=== PATIENT | female | born 1935 | race Caucasian/White ===

== ENCOUNTER 2016-09-11 10:25 | Outpatient (CLI) | payer MEDICARE, OTHER ==
[~2016-09-11] VITALS: Ht 160 cm; Wt 70.5 kg
--- NOTE | ~2016-09-11 | HEMODYNAMI ---
PATIENT:SANGEETA NIETO MEDICAL RECORD: [id number] : 39 LOCATION:[facility] ADMISSION DATE: 09/11/16 Generatedon:09/11/201613:34 Patient name: SANGEETA NIETO Patient #: [id number] SSN: [id number] : 1935 Date of study: 09/11/2016 Page: Of Hemodynamic Procedure Report Patient Data Patient Demographics Procedure consent was obtained First Name: SANGEETA Gender: Female Last Name: EMILIA : 1935 Middle Initial: WOLF Age: 81 year(s) Patient #: [id number] Race: Unknown SSN: [id number] Additional ID: [id number] Contact details Address: [address] [place] [address] State: [place] City: [place] Zip code: [address] Past Medical History Allergies Allergen Reaction Date Comments Reported Other allergy 06/30/2016 Sammy Inhibitors, Codiene, Edarbi, Lovastatin, Pepcid, Pravastatin, Prednisone, Prilosec, Symbicort Other allergy 07/09/2016 CODEINE, PEPCID, PREDNISONE, ALBUTEROL Admission Admission Data Admission Date: 09/11/2016 Admission Time: 10:25 Lab Results Lab Result Date: 09/11/2016 Lab Result Time: 0:00 Biochemistry Name Units Result Min Max BUN mg/dl 17 --(---*)-- 7 18 Creatinine mg/dl 0.9 --(-*--)-- 0.6 1.3 CBC Name Units Result Min Max Hemoglobin g/dl 9.8 *-(----)-- 13.5 17.5 Procedure Procedure Types Cath Procedure Diagnostic Procedure Cardioversion Procedure Description Procedure Date Procedure Date: 09/11/2016 Procedure Start Time: 13:22 Procedure End Time: 13:32 Procedure Staff Name Function Rogelio Zapata MD Performing Physician Nikita Martinez RT Scrub Franco Farrell RT Supply Service Worker Nita Del Rio RT Monitor Afua Rueter RN Nurse Procedure Data Cath Procedure Estimated blood loss: 0 ml Procedure Complications No complications Procedure Medications Medication Administration Route Dosage Oxygen NC 2 l/min Refer to Anesthesia Notes for Sedation Medications Hemodynamics Rest HGB: 9.8 (g/dl) Heart Rate: 77 (bpm) Snapshots Pre Cath Intra NCS Post Cath Vital Signs Time Heart Resp SPO2 NIBP (mmHg) Rhythm Pain Sedation Rate (ipm) (%) Status Level (bpm) 13:12:58 80 19 98 159/99(135) A-Fib 0 (11) 10(A) , No pain 13:17:16 77 22 99 134/94(108) A-Fib 0 (11) 10(A) , No pain 13:21:26 78 18 99 151/92(133) A-Fib 0 (11) 10(A) , No pain 13:25:36 83 16 98 136/77(108) A-Fib 0 (11) 6(A) , No pain 13:29:56 69 17 98 125/62(102) A-Fib 0 (11) 6(A) , No pain 13:31:38 70 19 100 133/75(107) NSR 0 (11) 10(A) , No pain Medications Time Medication Route Dose Verified Delivered Reason Notes Effectiven ess by by 13:12:19 Oxygen NC 2 Rogelio Caal Per l/min Jodi Lindquist RN physician 13:12:25 Refer to Rogelio Mercado Per Anesthesia Jodi Zapata MD physician Notes for Sedation Medications Procedure Log Time Note 12:40:12 Franco Farrell RT(R) sent for patient. Start room use. 12:53:14 Zero performed for pressure channel P1 12:54:03 ACC Patient presents with Stable Angina CCS Anginal Class 1--Ordinary physical activity does not cause angina, angina occurs with strenuos, rapid, or prolonged activity.. 12:54:07 ACC Patient presents with Non-STEMI CCS Anginal Class 0--No symptoms, no angina. 12:54:10 Diagnostic Cath status Elective 12:54:27 Time tracking: Regular hours 12:54:32 Plan of Care:Hemodynamics will remain stable., Cardiac rhythm will remain stable., Comfort level will be maintained., Respiratory function will remain adequate., Patient/ family verbilizes understanding of procedure., Procedure tolerated without complication., Recovers from procedure without complications.. 13:07:04 Patient received from Outpatients to CCL 1 Alert and oriented. Tansferred to table in Supine position. 13:07:05 Warm blankets applied, and nelly hugger turned on for patient comfort. 13:07:05 Correct patient and procedure confirmed by team. 13:07:07 Signed procedure consent form obtained from patient. 13:07:08 ECG and BP/O2 sat monitors applied to patient. 13:11:45 Vital chart was started 13:12:19 Oxygen 2 l/min NC was given by Afua Lindquist RN; Per physician; 13:12:25 Refer to Anesthesia Notes for Sedation Medications was given by Rogelio Zapata MD; Per physician; 13:14:53 Baseline sample Acquired. 13:15:07 Full Disclosure recording started 13:15:22 H&P Date Dictated: 09/08/2016 Within 30 days and on chart., H&P Addendum completed by physician on day of procedure. (MUST COMPLETE FOR ALL OUTPATIENTS). 13:15:31 Rhythm: atrial fibrillation 13:15:34 Pre-procedure instructions explained to patient. 13:15:36 Family in waiting room. 13:15:41 Patient NPO since Midnight. 13:15:54 Is patient on blood thinner?Yes 13:16:01 ACC The patient was administered the following blood thiners within the last 24 hours: ACCPradaxa 13:16:05 Patient diabetic? No. 13:16:08 Snore? Yes 13:16:10 Sleep apnea? No 13:16:11 Deviated septum? No 13:16:12 Opens mouth fully? Yes 13:16:13 Sticks out tongue? Yes 13:16:20 Dentures? No ? 13:16:36 IV patent on arrival in right forearm with 0.9% NaCl at [facility]. 13:17:37 Lab Result : BUN 17 mg/dl 13:17:37 Lab Result : Hemoglobin 9.8 g/dl 13:17:37 Lab Result : Creatinine 0.9 mg/dl 13:17:44 Lab results completed and on chart. 13:17:46 Alarms reviewed by Javier Pagan 13:17:54 Physician paged 13:18:24 Quick combo pads placed on patients chest and back. 13:18:35 Quick Combo opened to sterile field. 13:19:13 Jo present and monitoring patient for TIVA. 13:22:26 Procedure started. 13:27:32 Defibrillator synced and charged to 200 Joules. 13:27:54 Shock delivered. 13:29:48 Unsuccessful cardioversion. 13:29:55 Defibrillator synced and charged to 300 Joules. 13:30:25 Shock delivered. 13:30:29 Patient cardioverted to sinus rhythm . 13:30:42 Procedure ended.(Physican Out) 13:31:14 Post-procedure physical assessment completed. ASA score P 2 - A patient with mild systemic disease as per Rogelio Zapata MD. 13:31:19 Post procedure rhythm: sinus rhythm 13:31:24 Estimated blood loss: 0 ml 13:31:26 Post procedure instruction explained to patient.Patient verbalizes understanding. 13:31:40 Procedure and supply charges have been captured, reviewed, submitted and are correct. 13:32:00 Procedure Complication : No complications 13:32:19 Vital chart was stopped 13:32:29 See physician's report for complete and final results. 13:32:37 Report given to Outpatients. 13:32:43 Patient transfered to Outpatients with Stretcher. 13:32:47 Procedure ended. 13:32:47 Full Disclosure recording stopped 13:32:55 End room use (Document Last) Device Usage Item Manufacture Quantity Catalog Hospital Part Current Minimal Lot# / Name Number Charge Number Stock Stock Laurent al# Code Positron 1 [id number] Combo Signature Audit [place] Stage Time Signature Unsigned Intra-Procedure 09/11/2016 Nita Del Rio 1:34:34 PM RT(R) Signatures Monitor : Nita Del Rio Signature : RT Date : Time : [facility] [address] [place] [address]
[~2016-09-11 10:25] MED LIST: ATACAND8 MG PO; BAYER CHEWABLE81 MG PO; CARDIZEM120 MG PO; CARDIZEM30 MG PO; CLARITIN 10 MG10 MG PO; DEXILANT30 MG PO; DEXILANT60 MG PO; EZFE 200200 MG; K-DUR20 MEQ PO; KLOR-CON 1010 MEQ PO; LASIX20 MG PO; LUMIGAN 0.01%2.5 ML EACH EYE; MACRODANTIN100 MG PO; MULTAQ400 MG PO; NORVASC2.5 MG; PLAVIX75 MG PO; PRADAXA150 MG PO; PREMARIN0.3 MG; RESTASIS EYE DR30 EA EACH EYE; SINGULAIR10 MG PO; VITAMIN B-1250 MCG; XALATAN 0.0052.5 ML LEFT EYE
[2016-09-11] MEDS ORDERED: MELATONIN 3 MG1 TAB PO (11:45)
[2016-09-11] MEDS ORDERED: MULTAQ400 MG PO (11:45)
[2016-09-11] MEDS ORDERED: MUCINEX600 MG PO (11:46)
[2016-09-11] MEDS ORDERED: TRUSOPT 2 % OPT10 ML (11:46)
[2016-09-11] MEDS ORDERED: FLUTICASONE PRO16 GM NASAL (11:47)
[2016-09-11 11:51] LABS: BASOPHILS 2.6 % (0.0-2.0); EOSINOPHILS 3.9 % (0-7); HEMATOCRIT 31.7 % (36.0-48.0); HEMOGLOBIN 9.8 g/dL (12-16); IMMATURE GRANULOCYTES 0.2 % (0-5); LYMPHOCYTES 22.8 % (15-50); MCH 25.5 pg (26.0-34.0); MCHC 30.9 g/dL (31.0-37.0); MCV 82.3 fL (80.0-100.0); MEAN PLATELET VOLUME 9.8 fL (7.4-10.4); MONOCYTES 10.4 % (2-11); NEUTROPHILS 60.1 % (40-80); PLATELET COUNT 302 10x3/uL (130-400); RBC 3.85 10x6/uL (4.00-5.40); RDW 16.1 % (11.5-14.5); WBC 4.6 10x3/uL (4.8-10.8)
[2016-09-11 11:56] VITALS: BP 140/75; Ht 160 cm; Wt 70.5 kg
[2016-09-11 12:00] LABS: INR 1.85 (0.85-1.17); PROTIME 21.3 SECONDS (11.6-15.0)
[2016-09-11 12:07] LABS: ANION GAP 13.8 mmol/L (8-16); CALCIUM 9.4 mg/dL (8.5-10.1); CARBON DIOXIDE 26.9 mmol/L (21.0-32.0); CREATININE - SERUM 0.9 mg/dL (0.6-1.3); POTASSIUM - SERUM 3.7 mmol/L (3.5-5.1)
--- NOTE | 2016-09-11 14:03 | NUR ---
VSS AT HR 80 SR. BP 126/72 CHEST PAIN DENIED ALERT AND ORIENTED WITH HOB UP 30 DEGREES. WILL MONITOR
--- NOTE | 2016-09-11 15:30 | NUR ---
PIV REMOVED FROM LEFT ARM WITH DRESSING APPLIED. CHEST PAIN IS DENIED WITH NSR RATE 80 DISCHARGE INSTRUCTIONS GONE OVER WITH PATIENT AND . LEFT VIA WC TO [facility] FOR TO DRIVE HOME
--- NOTE | 2016-09-18 16:40 | OP ---
PATIENT NAME: SANGEETA NIETO MEDICAL RECORD: [id number] :39 LOCATION:[facility] ADMISSION DATE: SURGEON: GARCIA FRANKS MD DATE OF OPERATION: 09/11/2016 PROCEDURE: DC cardioversion. INDICATION: Atrial fibrillation. PROCEDURE IN DETAIL: IV conscious sedation was performed per anesthesia. Continuous heart rate, O2 saturation, blood pressure monitoring were all undertaken, all of which remained stable. She received 2 shocks at 200 and 300 joules restoring sinus rhythm. OVERALL IMPRESSION: Successful DC cardioversion from atrial fibrillation to sinus rhythm. TRANSINT:[id number] Voice Confirmation ID: [id number] DOCUMENT ID: [id number] GARCIA FRANKS MD at 1640 CC: [id number] DICTATION DATE: 09/11/16 1333 [place] TENDER: 09/11/16 1404 DEP CLI 09/11/[address] [id number]
== END 2016-09-11 15:32 | disposition home or self-care (01) ==
LOC: D.CATH 10:25
PROVIDERS: Internal Medicine Interventional Cardiology
DX: I48.91 Unspecified atrial fibrillation (principal)

== ENCOUNTER → 2017-05-12 10:51 | Outpatient (CLI) | payer MEDICARE, OTHER ==
[2016-09-11 11:56] VITALS: BMI 27.5
[~2017-05-12 10:51] MED LIST changes: +FLUTICASONE PRO16 GM NASAL; +MELATONIN 3 MG1 TAB PO; +MUCINEX600 MG PO; +TRUSOPT 2 % OPT10 ML
[2017-05-12 12:40] LABS: BASOPHILS 1.1 % (0-2); EOSINOPHILS 2.2 % (0-7); HEMATOCRIT 35.8 % (36.0-48.0); HEMOGLOBIN 11.3 g/dL (12-16); IMMATURE GRANULOCYTES 0.2 % (0-5); LYMPHOCYTES 20.8 % (15-50); MCH 27.3 pg (26.0-34.0); MCHC 31.6 g/dL (31.0-37.0); MCV 86.5 fL (80.0-100.0); MEAN PLATELET VOLUME 9.8 fL (7.4-10.4); MONOCYTES 10.3 % (2-11); NEUTROPHILS 65.4 % (40-80); PLATELET COUNT 251 10x3/uL (130-400); RBC 4.14 10x6/uL (4.00-5.40); RDW 22.4 % (11.5-14.5); WBC 6.3 10x3/uL (4.8-10.8)
== END | disposition home or self-care (01) ==
LOC: D.RT 10:51
PROVIDERS: Internal Medicine Pulmonary Disease
DX: J45.909 Unspecified asthma, uncomplicated (principal)